=== PATIENT | male | born 1950 | race Caucasian/White ===

== ENCOUNTER 2016-09-06 12:27 | Emergency (ER) | payer MEDICARE ==
[~2016-09-06] VITALS: Ht 167.6 cm; Wt 74.8 kg
[2016-09-06] MEDS ORDERED: IBUPROFEN 600 MG TABLET PO ONE ×2 (13:30→13:39)
[2016-09-06] MEDS ORDERED: TDAP [DIPH/PERTUSSIS/TET] 0.5 ML VIAL IM ONE ×2 (14:30→14:33)
[2016-09-06 14:50] VITALS: BP 127/76
== END 2016-09-06 14:51 | disposition home or self-care (01) ==
LOC: ER 12:29 → EDBD 12:29 → ER 14:51
DX: S39.012A Strain of muscle, fascia and tendon of lower back, initial encounter (principal); S80.02XA Contusion of left knee, initial encounter; S00.81XA Abrasion of other part of head, initial encounter; W22.8XXA Striking against or struck by other objects, initial encounter; Y93.55 Activity, bike riding; Y92.89 Other specified places as the place of occurrence of the external cause; Y99.8 Other external cause status
CPT/HCPCS: 72100; 73562; 90471; 90715; 99284; A4606; Z7610